=== PATIENT | female | born 1970 | race Caucasian/White ===

== ENCOUNTER 2021-01-26 12:20 | Inpatient (IN) | payer BC ==
[~2021-01-26] VITALS: Ht 162.6 cm; Wt 72.0 kg
[2021-01-26] VITALS (13 sets, daily range): BP systolic 118–151; BP diastolic 69–92
[2021-01-26] MEDS ORDERED: piperacillin/tazo 3.375gm/50ml 50 ML IV ONE (13:25)
[2021-01-26] MEDS ORDERED: NO HOME MEDS (14:02)
[2021-01-26] MEDS ORDERED: potassium Cl 40MEQ/1/2NS 520ml 520 ML IV PRN ×2 (14:55)
[2021-01-26] MEDS ORDERED: magnesium 4gm in 100ml NS 100 ML IV PRN (14:55)
[2021-01-26] MEDS ORDERED: magnesium 2GM in 50ml NS 50 ML IV PRN (14:55)
[2021-01-26] MEDS ORDERED: magnesium Cl slow-release 64mg tablet PO PRN (14:55)
[2021-01-26] MEDS ORDERED: ondansetron/PF 4mg/2ml inj IV PRN ×2 (14:55→17:10)
[2021-01-26] MEDS ORDERED: metoclopramide 5 mg/ml inj IV PRN (14:55)
[2021-01-26] MEDS ORDERED: potassium Cl 20 mEq SR tablet PO PRN ×2 (14:55)
[2021-01-26] MEDS ORDERED: acetaminophen 325mg tablet PO PRN (14:55)
[2021-01-26] MEDS ORDERED: BUPIVAcaine/PF 2.5mg/ml (0.25%) 10ml vial ONE ×2 (14:59→16:30)
[2021-01-26] MEDS ORDERED: LIDOcaine 1% 30ml preserv. free vial ONE (14:59)
[2021-01-26] MEDS: normal saline 1000ml 1,000 ML IV SCH (15:48)
[2021-01-26] MEDS ORDERED: fentaNYL/PF 50MCG/1 ML 2ML syringe ONE (16:19)
[2021-01-26] MEDS ORDERED: midazolam 1 mg/ML 2ml injection ONE (16:20)
[2021-01-26] MEDS ORDERED: LIDOcaine 2% (20mg/ml) 5ml vial ONE (16:26)
[2021-01-26] MEDS ORDERED: rocuronium 10mg/ml inj IV ONE (16:26)
[2021-01-26] MEDS ORDERED: propofol inj 20 ML IV ONE (16:26)
[2021-01-26] MEDS ORDERED: dexamethasone sod phosphate 4mg/ml inj. ONE (16:43)
[2021-01-26] MEDS ORDERED: ringers solution, lacted 1,000 ML IV SCH (17:10)
[2021-01-26] MEDS ORDERED: morphine 2 MG/ML inj. syringe IV PRN (17:10)
[2021-01-26] MEDS ORDERED: meperidine/PF 25mg/ml syringe IV PRN ×3 (17:10)
[2021-01-26] MEDS ORDERED: morphine 4 MG/ML inj SYRINge IV PRN (17:10)
[2021-01-26] MEDS ORDERED: proCHLORperazine 10 MG/2 ml inj IV PRN (17:10)
[2021-01-26] MEDS ORDERED: glycopyrrolate 0.2mg/ml inj ONE (17:43)
[2021-01-26] MEDS ORDERED: neostigmine methylsulfate 1 MG/ML 10ml vial ONE (17:43)
[2021-01-26] MEDS ORDERED: meperidine/PF 25mg/ml syringe ONE (17:43)
[2021-01-26] MEDS ORDERED: ondansetron/PF 4mg/2ml inj ONE (17:43)
--- NOTE | 2021-01-26 18:00 | NUR ---
Received from OR via JAN[facility], accompanied by Anesthesiologist DR RIVAS and report given by Anesthesiolgist. PT PLACED ON O2 AND MONITOR, S/P RA LAP APPY, GENERAL ANESTHESIA, PT AROUSES EASILY, HAS 3 LARGE BANDAIDS TO ABD CDI, ABD SOFT, DENIES ANY PAIN OR NAUSEA AT THIS TIME. WILL CONT. TO ASSESS.
[2021-01-26] MEDS ORDERED: acetaminophen 1,000mg/100ml IV 100 ML IV ONE (18:05)
[2021-01-26] MEDS ORDERED: HYDROcodone/acetaminophen 5mg/325mg tablet PO PRN (18:40)
[2021-01-26] MEDS ORDERED: HYDROcodone/acetaminophen 10/325mg tab PO PRN (18:40)
--- NOTE | 2021-01-26 18:43 | NUR ---
Report called to receiving nurse. Transferred via GURNEY TO ROOM 345A PT ANBLE TO TRANSFER SELF ONTO SURGICAL BED WITHOUT DIFF. Belongings . Special Issues communicated to receiving nurse.
--- NOTE | 2021-01-26 19:21 | NUR ---
I have received report from VITALIY EDWARD IN PACU and had the opportunity to ask questions and assume patient care.Patient resting and vital signs with in normal limits.
[2021-01-26] MEDS: K and/or MAG REPLACEMENT MC SCH (20:00)
[2021-01-26] MEDS: acetaminophen 325mg tablet PO SCH (20:00)
[2021-01-27] VITALS: BP 114/75
[2021-01-27] MEDS: normal saline 1000ml 1,000 ML IV SCH ×2 (00:55→11:07)
[2021-01-27] MEDS: ketorolac trometh. 30mg/ml inj. IV SCH ×2 (01:30→07:58)
[2021-01-27] MEDS: acetaminophen 325mg tablet PO SCH ×2 (02:00→07:57)
[2021-01-27 04:00] VITALS: BP 115/70
--- NOTE | 2021-01-27 06:35 | NUR ---
Patient in room [facility]. I have received report from REG EDWARD and had the opportunity to ask questions and assume patient care.
--- NOTE | 2021-01-27 06:40 | NUR ---
Problems reprioritized. Patient report given, questions answered & plan of care reviewed with MARKUS RN.
--- NOTE | 2021-01-27 06:42 | NUR ---
Problems reprioritized. Patient report given, questions answered & plan of care reviewed with Kavita Rn.
[2021-01-27 07:18] VITALS: BP 109/66
[2021-01-27] MEDS: K and/or MAG REPLACEMENT MC SCH (08:00)
[2021-01-27 08:31] LABS: ANION GAP 7 (8-16); BLOOD UREA NITROGEN 11 MG/DL (7-18); BUN/CREATININE RATIO 11.8 (6.6-38.0); CALCIUM 8.4 MG/DL (8.5-10.1); CHLORIDE 106 MMOL/L (99-107); CREATININE 0.93 MG/DL (0.40-0.90); GLUCOSE 104 MG/DL (70-104); MAGNESIUM 2.1 MG/DL (1.5-2.4); POTASSIUM 4.4 MMOL/L (3.5-5.1); SODIUM 141 MMOL/L (135-145); TOTAL CARBON DIOXIDE 27.7 MMOL/L (24-32); eGFR 63 ML/MIN
[2021-01-27 08:33] LABS: BASOPHILS % (AUTO) 0.1 % (0-1); EOSINOPHILS % (AUTO) 0 % (0-6); HEMATOCRIT 38.7 % (35.0-45.0); LYMPHOCYTES # (AUTO) 0.7 X10'3 (1.1-4.8); LYMPHOCYTES % (AUTO) 6.2 % (21-51); MEAN CORPUSCULAR HGB CONC 33.7 g/dL (33.0-36.5); MEAN PLATELET VOLUME 10.2 FL (7.4-10.4); MONOCYTES % (AUTO) 8.3 % (2-12); NEUTROPHILS # (AUTO) 10.2 X10'3 (1.8-7.7); NEUTROPHILS % (AUTO) 85.4 % (42-75); PLATELET COUNT 156 X10'3 (140-440); RED BLOOD COUNT 4.21 X10'6 (4.20-5.60); RED CELL DISTRIBUTION WIDTH 13.8 % (11.5-14.5); WHITE BLOOD COUNT 11.9 X10'3 (4.5-11.0)
[2021-01-27] MEDS ORDERED: HYDR-3965 PO (11:54)
[2021-01-27 12:13] VITALS: BP 114/73
--- NOTE | 2021-01-27 15:49 | NUR ---
Patient discharged home with family. Patient left with all belongings at discharge. Patient IV taken out at thei time of dischare and canula was whole and intact upon inspection. Patient was educated on her new medications and and aware or the the need for follow up with Dr. Norris. Patient left the floor on foot and left in private vehicle.
== END 2021-01-27 14:03 | disposition home or self-care (01) | DRG 343 ==
LOC: ER 12:22 → ED HOLD 14:56 → SUR 3N 18:50
PROVIDERS: ADMIT Internal Medicine; ATTEND Internal Medicine
PROC: 8E0W4CZ Robotic Assisted Procedure of Trunk Region, Percutaneous Endoscopic Approach (ICD-10-PCS; 2021-01-26)
PROC: 0DTJ4ZZ Resection of Appendix, Percutaneous Endoscopic Approach (ICD-10-PCS; principal; 2021-01-26 16:42)
DX: K35.80 Unspecified acute appendicitis (principal); Z98.891 History of uterine scar from previous surgery
CPT/HCPCS: 99285; Z7506; Z7508; 36415; 80048; 83735; 85025; 87081; A4215; A4618; G0378; J1100; J1885; J2001; J2175; J2250; J2405; J2704; J2710; J3010; J3490; J7030; J7120